=== PATIENT | male | born 1930 | race Caucasian/White ===

== ENCOUNTER 2017-04-20 15:29 | Inpatient (IN) | payer OTHER ==
[~2017-04-20] VITALS: Ht 162.6 cm; Wt 59.0 kg
[~2017-04-20 15:29] MED LIST: CEFADROXIL500 MG PO; RESTORIL15 M1 PO
[2017-04-23] MEDS ORDERED: MULTIVITAMINS1 EAC1 PO (18:22)
[2017-04-23] MEDS ORDERED: ESTAZOLAM1 MG PO (18:22)
[2017-04-23] MEDS ORDERED: Megace PO (18:22)
[2017-04-23] MEDS ORDERED: ARICEPT10 MG PO (18:22)
== END 2017-04-23 18:56 | disposition home or self-care (01) | DRG 812 ==
LOC: ER 15:29 → SEC-K 16:13 → MEDI 04-21 20:17
PROC: 30233N1 Transfusion of Nonautologous Red Blood Cells into Peripheral Vein, Percutaneous Approach (ICD-10-PCS; principal; 2017-04-21)
DX: D46.Z Other myelodysplastic syndromes (principal); I10 Essential (primary) hypertension; E11.9 Type 2 diabetes mellitus without complications; G30.8 Other Alzheimer's disease; F02.80 Dementia in other diseases classified elsewhere, unspecified severity, without behavioral disturbance, psychotic disturbance, mood disturbance, and anxiety

== ENCOUNTER 2018-07-01 16:52 | Emergency (ER) | payer OTHER ==
[~2018-07-01] VITALS: Ht 160 cm; Wt 59.0 kg
[~2018-07-01 16:52] MED LIST changes: +ARICEPT10 MG PO; +ESTAZOLAM1 MG PO; +MULTIVITAMINS1 EAC1 PO; +Megace PO
== END 2018-07-04 14:09 | disposition home or self-care (01) ==
LOC: ER 16:52
DX: D46.Z Other myelodysplastic syndromes (principal); D64.89 Other specified anemias; C61 Malignant neoplasm of prostate; G30.0 Alzheimer's disease with early onset; I10 Essential (primary) hypertension; E11.9 Type 2 diabetes mellitus without complications

== ENCOUNTER 2018-12-08 17:16 | Emergency (ER) | payer OTHER ==
[~2018-12-08] VITALS: Ht 175.3 cm; Wt 61.2 kg
[2018-12-08] MEDS ORDERED: DIALYVITE 800-1 EACH (17:22)
== END 2018-12-08 23:58 | disposition home or self-care (01) ==
LOC: ER 17:16
DX: N39.0 Urinary tract infection, site not specified (principal); R53.1 Weakness; B96.29 Other Escherichia coli [E. coli] as the cause of diseases classified elsewhere; R31.0 Gross hematuria

== ENCOUNTER 2018-12-13 12:52 | Inpatient (IN) | payer OTHER ==
[~2018-12-13] VITALS: Ht 165.1 cm; Wt 54.4 kg
[~2018-12-13 12:52] MED LIST changes: +DIALYVITE 800-1 EACH
--- NOTE | 2018-12-13 13:08 | NUR ---
SE RECIBE PTE EN AMBULANCIA ALERTA Y ORIENTADO X3,REFIERE FAMILIAR QUE EL PTE TIENE HEMATURIA EL PARAMEDICO REFIERE QUE CANALIZO AL PTE EN LA MANO IZQUIERDA CON UN ANGIO # 20 ,LLEGO CON UN RINGER LACTER.
--- NOTE | 2018-12-13 13:31 | NUR ---
SE ORIENTA PTE SOBRE EL TRATAMIENTO ORDENADO POR EL DR SERRA PTE ALERTA Y CONCIENTE POR 3 SE REALIZAN MUESTRAS DE LABORATORIO PTE SE MANTIENE EN OBSERVACION Y BAJO TRATAMIENTO.
--- NOTE | 2018-12-13 16:00 | NUR ---
PACIENTE ALERTA Y ORIENTADO X3. EN SILEVSTRE CON BARANDAS ELEVADAS. IV FLUID PATENTE Y JAMES DE EDEMA Y ERITEMA. PACIENTE CONSULTADO CON DRA. JOAN WHITTINGTON. MISS. REESE REALIZO MUESTRAS PARA TUBOS PILOTOS PARA REQUISAR 2 UNIDADES DE PRBC EN HOLD. SE MANTIENE BAJO OBSERVACION POR CAMBIOS SIGNIFICATIVOS.
[2018-12-18] MEDS ORDERED: FLUCONAZOLE100 MG PO (12:44)
== END 2018-12-18 14:17 | disposition home or self-care (01) | DRG 696 ==
LOC: ER 12:52 → MEDJ 19:36
PROVIDERS: ADMIT Internal Medicine
PROC: 30233N1 Transfusion of Nonautologous Red Blood Cells into Peripheral Vein, Percutaneous Approach (ICD-10-PCS; principal; 2018-12-14)
PROC: BW21ZZZ Computerized Tomography (CT Scan) of Abdomen and Pelvis (ICD-10-PCS; 2018-12-15)
PROC: BW21Y0Z Computerized Tomography (CT Scan) of Abdomen and Pelvis using Other Contrast, Unenhanced and Enhanced (ICD-10-PCS; 2018-12-15)
DX: R31.0 Gross hematuria (principal); N39.0 Urinary tract infection, site not specified; D46.Z Other myelodysplastic syndromes; G30.8 Other Alzheimer's disease; F02.80 Dementia in other diseases classified elsewhere, unspecified severity, without behavioral disturbance, psychotic disturbance, mood disturbance, and anxiety; C61 Malignant neoplasm of prostate; K57.30 Diverticulosis of large intestine without perforation or abscess without bleeding; N28.1 Cyst of kidney, acquired